=== PATIENT | male | born 1970 | race Caucasian/White ===

== ENCOUNTER 2021-10-21 10:31 | Emergency (ER) | payer OTHER ==
[2021-10-21] MEDS ORDERED: NORFLEX 100 MG100 MG PO (12:49)
[2021-10-21] MEDS ORDERED: IBUPROFEN600 MG PO (12:49)
== END 2021-10-21 13:05 | disposition home or self-care (01) ==
LOC: ER1 10:31
DX: S13.4XXA Sprain of ligaments of cervical spine, initial encounter (principal); S60.221A Contusion of right hand, initial encounter; V43.52XA Car driver injured in collision with other type car in traffic accident, initial encounter; W22.10XA Striking against or struck by unspecified automobile airbag, initial encounter; Y92.410 Unspecified street and highway as the place of occurrence of the external cause
CPT/HCPCS: 72125; 73130; 99284